=== PATIENT | male | born 1970 | race Two or more races ===

== ENCOUNTER 2023-05-25 23:00 | Emergency (ER) | payer MEDICAID, OTHER ==
[~2023-05-25] VITALS: Ht 170.2 cm; Wt 90.7 kg
[2023-05-25 23:03] VITALS: O2SAT 96
[2023-05-25] MEDS ORDERED: OXYMETAZOLINE NASAL 0.05% 15 ML SPRAY NS ONE ×2 (23:07→23:15)
[2023-05-25] MEDS ORDERED: SILVER NITRATE APPLICATOR STICK EACH TP ONE (23:15)
[2023-05-26] MEDS ORDERED: SILVER NITRATE APPLICATOR STICK EACH TP ONE (00:45)
== END 2023-05-26 01:05 | disposition home or self-care (01) ==
LOC: ER 23:03
DX: R04.0 Epistaxis (principal)
CPT/HCPCS: 30901; A4606; A4663